=== PATIENT | female | born 1940 | race Caucasian/White ===

== ENCOUNTER → 2016-12-03 | Outpatient (CLI) | payer MEDICARE, OTHER | LOC: GMAB 10:23 | PROVIDERS: ATTEND Family Medicine | DX: E03.9 Hypothyroidism, unspecified (principal) ==

== ENCOUNTER 2017-04-06 09:41 | Emergency (ER) | payer MEDICARE, OTHER ==
[2017-04-06 09:51] VITALS: TEMP 97.4
--- NOTE | 2017-04-06 10:02 | ED.PDOC ---
History of Present Illness - General Chief Complaint: Neuro Symptoms/Deficits Stated Complaint: altered mental status Time Seen by Provider: 04/06/17 09:53 Source: family Exam Limitations: clinical condition - History of Present Illness Initial Comments: Ruth Ann Ding Line 76 y/o female brought by family after it was noted that she passed out at home noted was laid on the counter top for 15 minutes according to and other caregiver on waking up was shaky.Then was brought by ems.Patient on arrival at er was awake ,alert , in cold sweats but unable to give birthday and address. stated that her has dementia.Had 2 episodes of passing out in the past. Timing/Duration: 1-3 hours Severity: moderate Improving Factors: nothing Associated Symptoms: other - see hpi Allergies/Adverse Reactions: Allergies NO KNOWN ALLERGY Allergy (Verified 04/06/17 09:51) Home Medications: Ambulatory Orders Levothyroxine Sodium [Synthroid] 0.075 mg PO DAILY 03/12/14 Aspirin [Aspirin EC Low Dose] 81 mg PO DAILY 04/06/17 Cyproheptadine HCl 4 mg PO BID 04/06/17 Losartan Potassium 50 mg PO DAILY #30 tab 04/06/17 Memantine HCl-Donepezil HCl [Namzaric 28-10 mg] 1 cap PO DAILY 04/06/17 Review of Systems - Review of Systems Constitutional: States: no symptoms reported EENTM: States: no symptoms reported Respiratory: States: no symptoms reported Cardiology: States: no symptoms reported Gastrointestinal/Abdominal: States: no symptoms reported Genitourinary: States: other - OAB Skin: States: no symptoms reported Neurological: States: see HPI, emotional problems Endocrine: States: no symptoms reported Past Medical History (General) - Patient Medical History Hx Dementia: Yes Hx Congestive Heart Failure: No Hx Diabetes: No Hx Other PMH: Yes - thyroid Surgical History: no surgical history - Vaccination History Hx Influenza Vaccination: - unknown Hx Pneumococcal Vaccination: - unknown - Social History Hx Tobacco Use: No Hx Alcohol Use: No Hx Substance Use: No Hx Substance Use Treatment: No Hx Depression: No Hx Physical Abuse: No Hx Emotional Abuse: No Hx Suspected Abuse: No - Activities of Daily Living Patient Lives Alone: No - Grooming Ability: Minimum Assistance Eating (Feeding) Ability: Minimum Assistance Toileting Ability: Minimum Assistance - Female History Patient is a Female of Child Bearing Age (10 -59 yrs old): No Family Medical History - Family History Mother Living Status: Hx Family Cancer: Yes - Leukemia Hx Family;Other: Lukemia Physical Exam - Physical Exam General Appearance: Alert, Comfortable, No apparent distress Eye Exam: bilateral normal Ears, Nose, Throat: hearing grossly normal, normal ENT inspection, normal pharynx Neck: full range of motion, supple, normal inspection Respiratory: lungs clear, normal breath sounds Cardiovascular/Chest: regular rate, rhythm, no edema, no murmur Peripheral Pulses: radial,right: 2+, radial,left: 2+ Gastrointestinal/Abdominal: non tender, soft, no organomegaly Back Exam: no CVA tenderness, no vertebral tenderness Extremity: no pedal edema, no calf tenderness Neurologic: alert, normal mood/affect, disoriented x 3 - time,place,date, other - pronator drift negative,speech fluent,eating well her sandwich Skin Exam: normal color Progress - Progress Progress: 04/06/17 14:20 Last Vital Signs Temp 97.4 F L 04/06/17 09:48 Pulse 70 04/06/17 13:00 Resp 20 04/06/17 13:00 BP 166/85 04/06/17 13:00 Pulse Ox 98 04/06/17 13:00 - Results/Orders Results/Orders: Laboratory Tests 04/06/17 04/06/17 04/06/17 10:20 10:20 13:26 WBC 6.8 RBC 4.82 Hgb 14.8 Hct 43.6 MCV 90.4 MCH 30.7 MCHC 33.9 RDW 13.3 Plt Count 192 MPV 8.3 Absolute Neuts (auto) 5.40 Absolute Lymphs (auto) 1.10 Absolute Monos (auto) 0.30 Absolute Eos (auto) 0.00 Absolute Basos (auto) 0.00 Neutrophils % 78.9 H Lymphocytes % 15.7 L Monocytes % 4.7 Eosinophils % 0.2 L Basophils % 0.5 PT 10.5 INR 0.930 PTT (SP) 30.6 D-Dimer, Quantitative < 200 Sodium 140 Potassium 4.0 Chloride 104 Carbon Dioxide 29 Anion Gap 11.0 L BUN 15 Creatinine 0.89 BUN/Creatinine Ratio 16.9 Random Glucose 117 H Serum Osmolality 281.3 Calcium 8.8 Magnesium 2.4 Total Bilirubin 0.7 Direct Bilirubin < 0.1 Indirect Bilirubin 0.6 AST 25 ALT 19 Alkaline Phosphatase 58 Creatine Kinase 66 CK-MB (CK-2) 3.2 CK-MB (CK-2) % Not Reportable Troponin I < 0.02 < 0.02 B-Natriuretic Peptide 81.5 Serum Total Protein 7.1 Albumin 4.1 Urine Color Urine Appearance Urine pH Ur Specific [place] Urine Protein Urine Glucose (UA) Urine Ketones Urine Blood Urine Nitrite Urine Bilirubin Urine Urobilinogen Ur Leukocyte Esterase Urine RBC Urine WBC Ur Epithelial Cells Urine Bacteria 04/06/17 Unknown WBC RBC Hgb Hct MCV MCH MCHC RDW Plt Count MPV Absolute Neuts (auto) Absolute Lymphs (auto) Absolute Monos (auto) Absolute Eos (auto) Absolute Basos (auto) Neutrophils % Lymphocytes % Monocytes % Eosinophils % Basophils % PT INR PTT (SP) D-Dimer, Quantitative Sodium Potassium Chloride Carbon Dioxide Anion Gap BUN Creatinine BUN/Creatinine Ratio Random Glucose Serum Osmolality Calcium Magnesium Total Bilirubin Direct Bilirubin Indirect Bilirubin AST ALT Alkaline Phosphatase Creatine Kinase CK-MB (CK-2) CK-MB (CK-2) % Troponin I B-Natriuretic Peptide Serum Total Protein Albumin Urine Color Yellow Urine Appearance Clear Urine pH 7.0 Ur Specific [place] 1.015 Urine Protein 30 Urine Glucose (UA) Negative Urine Ketones Trace Urine Blood Trace-intact H Urine Nitrite Negative Urine Bilirubin Negative Urine Urobilinogen 0.2 Ur Leukocyte Esterase Negative Urine RBC 0-1 Urine WBC 0 Ur Epithelial Cells 3-5 Urine Bacteria 0 - EKG/XRAY/CT EKG: Sinus, no ST T wave changes Comments: heart rate-63 CT Ordered: Yes - head-no acute abnormalities Departure - Departure Clinical Impression: History of dementia Syncope Qualifiers: Syncope type: unspecified Qualified Code(s): R55 - Syncope and collapse Hypertension Qualifiers: Hypertension type: unspecified Qualified Code(s): I10 - Essential (primary) hypertension Time of Disposition: 14:33 Disposition: Discharge to Home or Self Care Condition: Fair Departure Forms: ED Discharge - Pt. Copy, Patient Portal Self Enrollment Instructions: DI for Syncope in Adults (Fainting) Referrals: Raymundo Zavala MD [Primary Care Provider] - 1-2 Weeks Prescriptions: Losartan Potassium 50 mg PO DAILY #30 tab Home Medications: Ambulatory Orders Levothyroxine Sodium [Synthroid] 0.075 mg PO DAILY 03/12/14 Aspirin [Aspirin EC Low Dose] 81 mg PO DAILY 04/06/17 Cyproheptadine HCl 4 mg PO BID 04/06/17 Losartan Potassium 50 mg PO DAILY #30 tab 04/06/17 Memantine HCl-Donepezil HCl [Namzaric 28-10 mg] 1 cap PO DAILY 04/06/17 Additional Instructions: Return to emergency room as needed
--- NOTE | 2017-04-06 11:05 | RAD ---
EXAM DESCRIPTION: Chest,2 Views CLINICAL HISTORY: Altered mental status COMPARISON: None Available. TECHNIQUE: PA/lateral FINDINGS: Cardiomediastinal silhouette and pulmonary vascularity are within normal limits. Calcific atherosclerosis noted of the aortic arch. Lung volumes are hyperinflated, compatible with COPD changes. Lungs are clear without focal consolidations. Bilateral costophrenic angles are sharp. No pneumothorax. Degenerative changes of the thoracic spine. IMPRESSION: 1. No radiographic evidence for acute cardiopulmonary process. 2. COPD changes. Electronically signed by: Shady Longoria MD 04/06/2017 11:04 AM [facility]
--- NOTE | 2017-04-06 11:35 | CT ---
Study: CT of the Head. Indication: ams Technique: Axial CT images of the head were acquired with and without intravenous contrast. This exam was performed according to our departmental dose-optimization program, which includes automated exposure control, adjustment of the mA and/or kV according to patient size and/or use of iterative reconstruction technique. Comparison: MRI brain January 01, 2015. Findings: No CT evidence of acute ischemia, acute hemorrhage, mass, mass effect, midline shift, or extra-axial fluid collection. No pathologic enhancement. Mild ventriculomegaly, slight asymmetric with greater prominence in the right. No definite obstruction. This appear stable. Patchy hypoattenuation of the periventricular and subcortical white matter noted. This is nonspecific but most consistent with chronic microvascular ischemic change. Global parenchymal volume loss and intracranial atherosclerosis noted as well. Paranasal sinuses are adequately aerated. Mastoid air cells are adequately aerated. Osseous structures and soft tissues are unremarkable. Impression: 1. No CT evidence of acute intracranial abnormality. 2. Stable mild ventriculomegaly, right greater than left. 3. Senescent changes. Electronically signed by: Adam Hi MD 04/06/2017 11:33 AM [facility]
[2017-04-06 13:20] VITALS: O2SAT 98
[2017-04-06] MEDS: LOSARTAN POTASSIUM 25 MG TAB PO PRN (14:48)
[2017-04-06 15:11] VITALS: BP 182/84
== END 2017-04-06 15:10 | disposition home or self-care (01) ==
LOC: ER 09:41
DX: R55 Syncope and collapse (principal); I10 Essential (primary) hypertension; F03.90 Unspecified dementia, unspecified severity, without behavioral disturbance, psychotic disturbance, mood disturbance, and anxiety; E07.9 Disorder of thyroid, unspecified; Z79.82 Long term (current) use of aspirin; Z79.899 Other long term (current) drug therapy

== ENCOUNTER → 2017-09-21 | Outpatient (CLI) | payer MEDICARE, OTHER | LOC: GMAB 16:44 | PROVIDERS: ATTEND Family Medicine | DX: N39.0 Urinary tract infection, site not specified (principal) ==

== ENCOUNTER → 2017-10-05 | Outpatient (CLI) | payer MEDICARE, OTHER | LOC: GMAB 15:42 | PROVIDERS: ATTEND Family Medicine | DX: N39.0 Urinary tract infection, site not specified (principal) ==

== ENCOUNTER → 2017-12-07 | Outpatient (CLI) | payer MEDICARE, OTHER | LOC: GMAE 16:47 | PROVIDERS: ATTEND Family Medicine | DX: E03.9 Hypothyroidism, unspecified (principal) ==

== ENCOUNTER → 2018-03-04 | Outpatient (CLI) | payer MEDICARE, OTHER | LOC: GMAE 14:18 | PROVIDERS: ATTEND Family Medicine | DX: N39.0 Urinary tract infection, site not specified (principal) ==